=== PATIENT | female | born 1985 | race Asian ===

== ENCOUNTER 2023-05-10 09:42 | Emergency (ER) | payer OTHER ==
[2023-05-10 10:03] VITALS: BP 122/78; PULSE 93; RESP 20; TEMP 98.4; BMI 31.6
[2023-05-10 11:47] LABS: BASO % 0.4 % (0-2.0); EOS % 0.9 % (0-4.5); HEMATOCRIT 41.8 % (32.4-45.2); HEMOGLOBIN 13.5 GM/dL (10.7-15.3); LYMPH % 34.7 % (8-40); MCH 28.2 pg (25.7-33.7); MCHC 32.3 g/dl (32.0-36.0); MEAN CELL VOLUME 87.4 fl (80-96); MEAN PLT VOLUME 8.6 fl (7.5-11.1); MONO % 7.5 % (3.8-10.2); NEUT % 56.5 % (42.8-82.8); PLATELET COUNT 378 10^3/uL (134-434); RBC 4.78 M/mm3 (3.60-5.2); RDW 13.1 % (11.6-15.6); WHITE BLOOD COUNT 6.9 K/mm3 (4.0-10.0)
[2023-05-10 12:01] LABS: POTASSIUM 4.3 mmol/L (3.5-5.1)
[2023-05-10 12:03] LABS: CALCIUM 9.3 mg/dL (8.5-10.1)
[2023-05-10 12:04] LABS: ALBUMIN 4.2 g/dl (3.4-5.0); BLOOD UREA NITROGEN 7.4 mg/dL (7-18)
[2023-05-10 12:07] LABS: URIC ACID 5.5 mg/dL (2.6-7.2)
[2023-05-10 12:08] LABS: CREATININE 0.6 mg/dL (0.55-1.3); PHOSPHOROUS 3.5 mg/dL (2.5-4.9)
[2023-05-10 12:09] LABS: TOT PROT 8.5 g/dl (6.4-8.2)
[2023-05-10 12:10] LABS: BILIRUBIN,TOTAL 0.7 mg/dL (0.2-1)
[2023-05-10 13:02] LABS: HIV INTERPRETATION NEGATIVE (NEGATIVE)
== END 2023-05-10 10:59 | disposition home or self-care (01) ==
LOC: JERFT 09:42
DX: S61.240A Puncture wound with foreign body of right index finger without damage to nail, initial encounter (principal); W46.1XXA Contact with contaminated hypodermic needle, initial encounter; Y93.89 Activity, other specified; Y92.239 Unspecified place in hospital as the place of occurrence of the external cause
CPT/HCPCS: 36415; 80053; 82465; 82977; 83615; 84100; 84478; 84550; 84702; 85025; 86704; 86803; 87340; 87389; 87517; 99283-25